=== PATIENT | female | born 1965 | race Caucasian/White ===

== ENCOUNTER 2019-02-23 18:28 | Emergency (ER) | payer BC ==
[~2019-02-23] VITALS: Ht 157.5 cm; Wt 90.7 kg
--- NOTE | 2019-02-23 18:55 | NUR ---
HECTOR, C/O BACK PAIN x 1 MONTH, 12/23 PS. PATIENT A/OX4, BREATHING EVEN AND UNLABROED, NO SOB NOTED, NEEDS ATTENDED. KEPT COMFORTABLE.
--- NOTE | 2019-02-23 19:11 | NUR ---
ENDORSED TO [facility] FOR [facility].
[2019-02-23 19:22] LABS: BASOPHILS # (AUTO) 0.1 /CMM (0.0-0.2); BASOPHILS % (AUTO) 0.6 % (0.0-2.0); EOSINOPHILS % (AUTO) 0.8 % (0.0-6.0); HEMATOCRIT 42 % (33-45); HEMOGLOBIN 14.6 g/dL (11.5-14.8); LYMPHOCYTES # (AUTO) 2.7 /CMM (0.8-4.8); MEAN CORPUSCULAR HGB CONC 34 g/dl (31.0-36.0); MEAN CORPUSCULAR VOLUME 88 fL (82-100); MONOCYTES # (AUTO) 0.7 /CMM (0.1-1.30); MONOCYTES % (AUTO) 9.1 % (2.0-12.0); NEUTROPHILS # (AUTO) 4.5 /CMM (1.8-8.9); NEUTROPHILS % (AUTO) 55.5 % (43.0-81.0); PLATELET COUNT (AUTO) 332 /CMM (150-450); RED BLOOD CELL COUNT(AUTO) 4.82 MIL/uL (4.0-5.2); WHITE BLOOD COUNT (AUTO) 8.1 K/uL (4.3-11.0)
[2019-02-23 19:30] LABS: CALCIUM, SERUM 9.4 mg/dL (8.5-10.1); CREATININE 0.9 mg/dL (0.6-1.3); POTASSIUM 3.3 mmol/L (3.5-5.1)
--- NOTE | 2019-02-23 19:36 | NUR ---
patient sent to ct.
[2019-02-23] MEDS ORDERED: ONDANSETRON 4 MG TAB.RAPDIS ONE (20:09)
[2019-02-23] MEDS ORDERED: MORPHINE SULFATE INJ 2 MG/ML DISP.SYRIN ONE (20:09)
[2019-02-23] MEDS ORDERED: POTASSIUM CHLORIDE 20 MEQ TAB.PRT.SR PO ONE ×2 (20:09→20:30)
[2019-02-23] MEDS ORDERED: ONDANSETRON 4 MG TAB.RAPDIS SL ONE (20:30)
[2019-02-23] MEDS ORDERED: MORPHINE SULFATE INJ 2 MG/ML DISP.SYRIN IM ONE (20:30)
--- NOTE | 2019-02-23 21:27 | NUR ---
Patient discharged to home in stable condition. Written and verbal after care instructions given. Patient verbalizes understanding of instruction.
--- NOTE | 2019-02-23 21:27 | NUR ---
Nagi bourne in EDM - 02/23/19 at 2131 by YULIYA PRESCRIPTION GIVEN AND EXPLAINED TO PATIENT.
--- NOTE | 2019-02-23 21:27 | NUR ---
PRESCRIPTION GIVEN AND EXPLAINED TO PATIENT AND .
[2019-02-23 21:28] VITALS: BP 129/76
== END 2019-02-23 21:32 | disposition home or self-care (01) ==
LOC: ER 18:36
DX: M54.6 Pain in thoracic spine (principal); K80.20 Calculus of gallbladder without cholecystitis without obstruction; E87.6 Hypokalemia; I10 Essential (primary) hypertension
CPT/HCPCS: 36415; 71250; 80048; 85025; 93005; 96372; 99284; J2270; Q0162